=== PATIENT | female | born 1980 | race Caucasian/White ===

== ENCOUNTER 2020-08-07 08:38 | Emergency (ER) | payer OTHER, SELFPAY ==
--- NOTE | ~2020-08-07 | CT_ITS ---
EXAMINATION: CT abdomen pelvis wo con EXAM DATE: 08/07/2020 11:22 INDICATION: Right flank pain. TECHNIQUE: Spiral CT of the abdomen and pelvis was performed without contrast. Axial, coronal and s agittal images of the abdomen and pelvis were reviewed. The dose-length product (DLP) for this exami nation was 191.36 mGy-cm. The exposure was tailored according to patient size (auto mA exposure cont rol), and iterative reconstruction (ASIR) was used as additional dose reduction technique. There is no prior study for comparison. FINDINGS: The liver, spleen, adrenal glands and pancreas are unremarkable. There are cholecystectomy clips. There is a 4 mm stone in the distal aspect right ureter, 2 cm from the ureterovesicular junc tion, causing mild to moderate right-sided hydronephrosis. Additional punctate right superior calycea l stone and several left calyceal stones which are nonobstructing. The uterus is anteverted and morp hologically normal. The bladder is unremarkable. There is no retroperitoneal or pelvic lymphadenop athy. Small umbilical fat-containing hernia. The appendix is normal. The stomach and small bowel are unremarkable. There is moderate amount of c olonic stool. No free intraperitoneal gas. The heart is normal in size. There are no pericardial or pleural effusions. The lung bases are unremarkable. The bones are unremarkable. IMPRESSION: 1. Right distal ureteral 4 mm stone, mild to moderate hydronephrosis. 2. Punctate bilateral nephrolithiasis. Reviewed, dictated and finalized at location A.
[2020-08-07 09:05] VITALS: BP 112/55; PULSE 66; RESP 20; TEMP 37.1; O2SAT 100
[2020-08-07 09:13] LABS: Basophils Percent Auto 0.5 % (0.2-1.2); Eosinophils Absolute Auto 0.1 K/mm3 (0-0.3); Eosinophils Percent Auto 2.2 % (0-4.4); Hematocrit 43.6 % (37.0-47.0); Hemoglobin 14.2 g/dL (12.0-15.0); Immature Granulocyte Absolute 0.02 K/mm3 (0.00-0.031); Immature Granulocyte Percent A 0.3 % (0-0.5); Lymphocytes Absolute Auto 1.41 K/mm3 (0.9-3.2); Lymphocytes Percent Auto 21.9 % (18.3-44.2); Mean Corpuscular HGB Conc 32.6 g/dl (32-36); Mean Corpuscular Hemoglobin 29.4 pg (26-34); Mean Corpuscular Volume 90.3 fl (80-100); Mean Platelet Volume 10.3 fl (7.4-10.4); Monocytes Absolute Auto 0.5 K/mm3 (0.1-0.6); Monocytes Percent Auto 8.2 % (2.6-8.5); Neutrophils Absolute Auto 4.3 K/mm3 (1.3-6.7); Neutrophils Percent Auto 66.9 % (45.5-73.1); Platelet Count Result 249 k/mm3 (150-375); Red Blood Count 4.83 M/mm3 (4.2-5.4); Red Cell Distribution Width 13.4 % (11.5-14.5); White Blood Count 6.4 K/mm3 (4.5-10.0)
[2020-08-07 09:22] LABS: Anion Gap 10 mmol/L (8-16); Blood Urea Nitrogen 14 mg/dL (7-17); Calcium 9.9 mg/dL (8.4-10.2); Carbon Dioxide 24 mmol/L (22-30); Chloride 111 mmol/L (98-107); Estimated CRCL calculation 82 ml/min; Estimated Glomerular Filt Rate > 60; Glucose 119 mg/dL (65-105); Potassium 4.3 mmol/L (3.4-5.0); Sodium 145 mmol/L (137-145)
[2020-08-07] MEDS: SODIUM CHLORIDE 0.9% IV 1,000 ML 999 ML IV CONT (10:01)
[2020-08-07] MEDS: KETOROLAC 30 MG/ML VIAL (*BKC) IV PUSH (10:01)
--- NOTE | 2020-08-07 10:30 | ED.GENADULT ---
HPI - General Adult General Chief complaint: Abdominal Pain Stated complaint: flank pain/kidney stone Time Seen by Provider: 08/07/20 08:51 History of Present Illness HPI narrative: Patient is a 39-year-old female who presents ER with sudden onset right-sided flank pain. Began back is now causing discomfort around her bladder. Reports urinary frequency. No dysuria/fever/chills. Has history of kidney stones. Feels similar but was more intense. Pain reported as sharp. Related Data Allergies Allergy/AdvReac Type Severity Reaction Status Date / Time No Known Allergies Allergy Mild Verified 08/07/20 09:08 Review of Systems Review of Systems: All systems reviewed & are unremarkable except as noted in HPI and below Constitutional: Constitutional: Denies chills and Denies fever(s) Gastrointestinal: Gastrointestinal: Reports abdominal pain, Denies diarrhea and Reports nausea Genitourinary: Genitourinary: Reports nocturia, Denies dysuria and Reports flank pain PMFSH Past Medical History Medical History (Updated 08/07/20 @ 13:10 by Ignacio Herrera MD) Kidney stones Surgical History Surgical History (Updated 08/07/20 @ 10:31 by Ignacio Herrera MD) H/O partial thyroidectomy History of cholecystectomy Social History Social History (Updated 08/07/20 @ 10:31 by Ignacio Herrera MD) Smoking status: Never smoker Gender identity (if verbalized by the patient): Female Exam Narrative: Exam Narrative: GENERAL: Well-appearing, well-nourished, and in no acute distress. HEAD: Normocephalic, atraumatic. ENT: Mucous membranes moist. CHEST: Clear to auscultation. No respiratory distress. HEART: Regular rate and rhythm. Normal peripheral pulses. ABDOMEN: Soft, nontender, nondistended. No CVA tenderness. EXTREMITIES: Normal range of motion. No edema. SKIN: Warm, dry, no rash. NEURO: Alert and oriented x3. Course Course Emergency Course: Pain improved. Informed results. Discharge home. Vital Signs Vital signs: Vital Signs Temperature 98.7 F 08/07/20 09:05 Pulse Rate 66 08/07/20 09:05 Respiratory Rate 20 08/07/20 09:05 Blood Pressure 112/55 L 08/07/20 09:05 Pulse Oximetry 100 08/07/20 09:05 Temperature 98.7 F 08/07/20 09:05 Pulse Rate 60 08/07/20 12:32 Respiratory Rate 20 08/07/20 12:32 Blood Pressure 100/64 08/07/20 12:32 Pulse Oximetry 100 08/07/20 12:32 Medical Decision Making Vital Signs Vital Signs: Vital Signs Temperature 98.7 F 08/07/20 09:05 Pulse Rate 66 08/07/20 09:05 Respiratory Rate 20 08/07/20 09:05 Blood Pressure 112/55 L 08/07/20 09:05 Pulse Oximetry 100 08/07/20 09:05 Temperature 98.7 F 08/07/20 09:05 Pulse Rate 60 08/07/20 12:32 Respiratory Rate 20 08/07/20 12:32 Blood Pressure 100/64 08/07/20 12:32 Pulse Oximetry 100 08/07/20 12:32 Lab Data Result diagrams: 08/07/20 09:06 08/07/20 09:06 Labs: Lab Results 08/07/20 08/07/20 08/07/20 Range/Units 09:06 09:06 10:34 WBC 6.4 (4.5-10.0) K/mm3 RBC 4.83 (4.2-5.4) M/mm3 Hgb 14.2 (12.0-15.0) g/dL Hct 43.6 (37.0-47.0) % MCV 90.3 (80-100) fl MCH 29.4 (26-34) pg MCHC 32.6 (32-36) g/dl RDW 13.4 (11.5-14.5) % Plt Count 249 (150-375) k/mm3 MPV 10.3 (7.4-10.4) fl Immature Gran % (Auto) 0.3 (0-0.5) % Neut % (Auto) 66.9 (45.5-73.1) % Lymph % (Auto) 21.9 (18.3-44.2) % Gentry % (Auto) 8.2 (2.6-8.5) % Eos % (Auto) 2.2 (0-4.4) % Baso % (Auto) 0.5 (0.2-1.2) % Lymph # (Auto) 1.41 (0.9-3.2) K/mm3 Gentry # (Auto) 0.5 (0.1-0.6) K/mm3 Eos # (Auto) 0.1 (0-0.3) K/mm3 Baso # (Auto) 0.0 (0.0-0.1) K/mm3 Abs Immat Gran (auto) 0.02 (0.00-0.031) K/mm3 Absolute Neuts (auto) 4.3 (1.3-6.7) K/mm3 Absolute Nucleated RBC 0.0 (0.0-0.012) K/mm3 Nucleated RBC % 0.0 (0.0-0.2) % Sodium 145 (137-145) mmol/L Potassium 4.3 (3.4-5.0) mmol/L Chl
[2020-08-07 10:43] LABS: Add Urine Microscopic? YES; Appearance Urine Cloudy (Clear); Bacteria Urine Trace /hpf; Bilirubin Urine Negative (Negative); Blood Urine 1+ (Negative); Color Urine Yellow (Yellow); Glucose Urine UA Negative (Negative); Ketones Urine Negative (Negative); Leukocyte Esterase Ur 2+ LEU/UL (Negative); Mucus Urine Moderate /lpf; Nitrate Urine Negative (Negative); Protein Urine 2+ mg/dL (Negative); RBC Urine >75 /hpf (0-2); Specific Grav Ur 1.024 (1.001-1.035); Squamous Epithelial Cell Urine Few /hpf (Few)
[2020-08-07 12:32] VITALS: BP 100/64; PULSE 60; RESP 20; O2SAT 100
[2020-08-07 13:25] VITALS: BP 102/68; PULSE 60; RESP 20; O2SAT 100
== END 2020-08-07 13:30 | disposition home or self-care (01) ==
PROVIDERS: Emergency Provider Emergency Medicine; PCP Nurse Practitioner Family
DX: N13.2 Hydronephrosis with renal and ureteral calculous obstruction (principal); Z87.442 Personal history of urinary calculi; E89.0 Postprocedural hypothyroidism
CPT/HCPCS: 36415; 74176; 80048; 81001; 81025; 85025; 87086; 96361; 96374; 99284; J1885; J7030

== ENCOUNTER → 2021-05-16 13:51 | Outpatient (CLI) | payer OTHER, SELFPAY ==
--- NOTE | ~2021-05-16 | MM_ITS ---
EXAMINATION: MM screening radha BI w shaquille HISTORY: Screening mammogram TECHNIQUE: Craniocaudal and mediolateral oblique 3-D tomosynthesis images were obtained and synthetic 2-D images were generated. CAD analysis was submitted and interpreted. COMPARISON: No prior mammogram is available for comparison at this institution. BREAST PARENCHYMAL COMPOSITION: The breasts are extremely dense, which lowers the sensitivity of mamm ography. FINDINGS: Bilateral scattered benign calcifications. There is no evidence of suspicious mass, calcifi cation, or architectural distortion to suggest malignancy in either breast. There has been no suspici ous interval change. IMPRESSION: 1. No mammographic evidence of malignancy. 2. Recommend routine screening mammography in one year. BI-RADS Category 2: Benign finding(s). Reviewed, dictated and finalized at location A.
--- NOTE | ~2021-05-16 | US_ITS ---
EXAMINATION: US transvaginal DATE: 05/16/2021 14:23 INDICATION: Ovarian cyst. Comparison:Ultrasound dated 06/25/2018 TECHNIQUE: Multiple transabdominal and endovaginal sonographic images of the pelvis performed. FINDINGS: The uterus measures 7.8 x 3 x 4.2 cm. The endometrial complex measures 4 mm. The right ovary measures 2.2 x 1.9 x 1.4 cm and the left ovary measures 2.1 x 1.9 x 1.1 cm. There ar e small follicles in each ovary. Normal doppler signal in both ovaries. There is no free fluid in the pelvis. There are no abnormal masses seen on either side. IMPRESSION: 1. Unremarkable pelvic ultrasound. Reviewed, dictated and finalized at location A.
== END ==
PROVIDERS: Visit Provider Nurse Practitioner
DX: N83.202 Unspecified ovarian cyst, left side (principal); Z12.31 Encounter for screening mammogram for malignant neoplasm of breast
CPT/HCPCS: 76830; 77063; 77067

== ENCOUNTER 2023-05-23 07:42 | Outpatient (CLI) | payer BC, SELFPAY ==
--- NOTE | ~2023-05-23 | US_ITS ---
EXAMINATION: US thyroid DATE: 05/23/2023 08:09 INDICATION: Enlarged thyroid. TECHNIQUE: Multiple ultrasound images of the thyroid were obtained. COMPARISON: Ultrasound 08/08/2017 FINDINGS: The right thyroid lobe is absent The left thyroid lobe measures 6.2 x 2.4 x 2.2 cm. The thyroid is d iffusely heterogeneous and hypoechoic with increased vascularity. No discrete nodule. IMPRESSION: 1. Heterogeneous, hypervascular thyroid, consistent with chronic lymphocytic (Henrik) thyroiditis. 2. Right hemithyroidectomy. Reviewed, dictated and finalized at location A. IMPRESSION: 1. Heterogeneous, hypervascular thyroid, consistent with chronic lymphocytic (H ashimoto) thyroiditis. 2. Right hemithyroidectomy.
== END 2023-05-23 07:43 ==
LOC: MICIMG 07:43
PROVIDERS: PCP Nurse Practitioner; Visit Provider Nurse Practitioner
DX: E07.89 Other specified disorders of thyroid (principal); Z90.89 Acquired absence of other organs
CPT/HCPCS: 76536

== ENCOUNTER 2023-09-21 07:10 | Outpatient (CLI) | payer BC, SELFPAY ==
--- NOTE | ~2023-09-21 | MM_ITS ---
EXAMINATION: MM screening radha BI w shaquille HISTORY: Screening TECHNIQUE: Craniocaudal and mediolateral oblique 3-D tomosynthesis images were obtained and synthetic 2-D images were generated. CAD analysis was submitted and interpreted. COMPARISON: 05/16/2021 BREAST PARENCHYMAL COMPOSITION: Dense: The breasts are extremely dense, which lowers the sensitivity of mammography. FINDINGS: There is no evidence of suspicious mass, calcification, or architectural distortion to sugg est malignancy in either breast. There has been no suspicious interval change. IMPRESSION: 1. No mammographic evidence of malignancy. 2. Recommend routine screening mammography in one year. BI-RADS Category 1: Negative Reviewed, dictated and finalized at location B.
== END 2023-09-21 07:11 ==
PROVIDERS: PCP Obstetrics & Gynecology; Visit Provider Obstetrics & Gynecology
DX: Z12.31 Encounter for screening mammogram for malignant neoplasm of breast (principal)
CPT/HCPCS: 77063; 77067